=== PATIENT | female | born 1990 | race Caucasian/White ===

== ENCOUNTER 2021-01-28 20:45 | Emergency (ER) | payer MEDICAID, SELFPAY ==
[2021-01-28 21:01] VITALS: BP 116/98; PULSE 113; PULSE 140; RESP 16; TEMP 37; O2SAT 98; BMI 25.8
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
== END 2021-01-28 21:26 | disposition home or self-care (01) ==
PROVIDERS: Emergency Provider Internal Medicine; PCP Internal Medicine
DX: S40.811A Abrasion of right upper arm, initial encounter (principal); Y04.2XXA Assault by strike against or bumped into by another person, initial encounter; M79.89 Other specified soft tissue disorders; Y93.9 Activity, unspecified; Y92.9 Unspecified place or not applicable; Y99.9 Unspecified external cause status
CPT/HCPCS: 99283

== ENCOUNTER 2021-07-05 12:26 | Outpatient (REF) | payer MEDICAID, SELFPAY ==
[2021-07-05 13:33] LABS: COVID-19 Test Negative (Negative)
== END 2021-07-05 12:27 | disposition home or self-care (01) ==
LOC: HO.LAB 12:26
PROVIDERS: Visit Provider Internal Medicine
DX: Z20.822 Contact with and (suspected) exposure to COVID-19 (principal)
CPT/HCPCS: 87635; C9803

== ENCOUNTER 2021-08-25 23:52 | Emergency (ER) | payer MEDICAID, SELFPAY ==
[2021-08-26 00:08] VITALS: BP 138/96; PULSE 70; RESP 18; TEMP 36.6; O2SAT 100; BMI 21.3
[2021-08-26 00:31] LABS: Appearance Urine CLOUDY; Color Urine YELLOW; Glucose Urine UA NEG (NEG); Leukocyte Esterase Urine 1+ (NEG); Nitrite Urine POS (NEG); Specific Gravity - Urine 1.015 (1.005-1.025); Urine Blood NEG (NEG); Urine Ketones NEG (NEG); Urine Protein NEG (NEG-TRACE)
[2021-08-26 00:32] LABS: UPreg QC Valid YES; Urine Pregnancy NEGATIVE (NEGATIVE)
[2021-08-26 00:47] LABS: Amorphous Sediment Urine 2+ /LPF; Bacteria Urine 4+ /LPF; Mucus Urine 2+ /LPF; Squamous Epithelial Cell Urine 1+ /LPF
[2021-08-26 00:53] LABS: MANUAL DIFF FLAG NO
[2021-08-26 00:56] LABS: COVID-19 Test Negative (Negative); IDNOW Serial# 08D9AD1C
[2021-08-26 01:02] LABS: Amphetamine Screen Urine POSITIVE (Not Detect); Barbiturates, Urine Not Detected (Not Detect); Benzodiazepines Screen Urine POSITIVE (Not Detect); Cannabinoid Screen Urine POSITIVE (Not Detect); Cocaine Screen Urine Not Detected (Not Detect); Fentanyl, urine Not Detected (Not Detect); Opiate Screen Urine Not Detected (Not Detect); Phencyclidine Screen Urine Not Detected (Not Detect)
[2021-08-26 01:09] LABS: Basophils Absolute Auto 0.1 X10*3/uL (0.0-0.2); Eosinophils Absolute Auto 0.7 X10*3/uL (0.0-0.4); Eosinophils Percent Auto 6.3 % (0-4); Hematocrit 50.4 % (37.0-47.0); Hemoglobin 17.5 g/dl (12.0-16.0); Imm Gran Abs Auto 0.03 X10*3/uL (0.00-0.03); Imm Gran Pct Auto 0.3 % (0.0-0.4); Lymphocytes Absolute Auto 4.8 X10*3/uL (1.2-4.9); Lymphocytes Percent Auto 46.7 % (20-40); Mean Corpuscular HGB Conc 34.7 g/dl (31.0-35.0); Mean Corpuscular Hemoglobin 31.1 pg (27.0-33.0); Mean Corpuscular Volume 89.7 fL (80.0-98.0); Monocytes Absolute Auto 0.7 X10*3/uL (0.1-1.2); Monocytes Percent Auto 6.3 % (2-11); Neutrophils Absolute Auto 4.1 x10*3/uL (2.0-8.3); Neutrophils Percent Auto 39.4 % (45-73); PLT CLUMP 1; Red Blood Count 5.62 X10*6/uL (4.20-5.50); Red Cell Distribution Width 13.7 % (11.0-16.0); SCAN SMEAR FLAG 1
[2021-08-26 01:10] LABS: Ethanol < 10 mg/dL
[2021-08-26 01:11] LABS: White Blood Count 10.4 X10*3/uL (4.8-10.8)
[2021-08-26 01:13] LABS: Anion Gap 14 (12-20); Blood Urea Nitrogen 7 mg/dL (9-16); Calcium 10.6 mg/dL (8.4-10.2); Carbon Dioxide 28 mmol/L (22-29); Chloride 104 mmol/L (96-108); Creatinine Clr Calc Pharmacy 104.5; Estimated Glomerular Filt Rate > 60; Glucose Random 88 mg/dL (60-115); Lipase 125 U/L (8-78); Potassium 4.6 mmol/L (3.3-5.1); Sodium 141 mmol/L (135-145)
[2021-08-26 01:14] LABS: Platelet Count 383 X10*3/uL (160-400)
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
[2021-08-26 02:22] VITALS: BP 151/82; PULSE 95; RESP 20; TEMP 36.9; O2SAT 99
== END 2021-08-26 02:31 | disposition home or self-care (01) ==
PROVIDERS: Emergency Provider Emergency Medicine Emergency Medical Services
DX: M54.50 Low back pain, unspecified (principal); F19.10 Other psychoactive substance abuse, uncomplicated; R45.1 Restlessness and agitation; Z20.822 Contact with and (suspected) exposure to COVID-19; F32.A Depression, unspecified; F41.9 Anxiety disorder, unspecified
CPT/HCPCS: 36415; 80048; 80307; 81001; 81025; 82077; 83690; 85025; 87635; 99283; 99284

== ENCOUNTER 2021-09-03 21:48 | Emergency (ER) | payer MEDICAID, SELFPAY ==
[2021-09-03 22:01] VITALS: BP 180/100; PULSE 93; RESP 20; TEMP 36.4; O2SAT 100; BMI 21.3
--- NOTE | 2021-09-03 22:26 | ED.PSYCH ---
HPI - Psych General Chief Complaint: Psychiatric Symptoms Stated Complaint: crisis Time Seen by Provider: 09/03/21 22:22 History of Present Illness HPI Narrative: Patient is 30 years old presents today with having [place] someone with suicidal thought was section. Patient claims she was going to jump off a bridge texted that her friend. Scented for further evaluation. He denies drinking any alcohol drugs. Does not feel suicidal at this time. Related Data Allergies Allergy/AdvReac Type Severity Reaction Status Date / Time No Known Allergies Allergy Unverified 03/10/20 16:14 Review of Systems Review of Systems: No chest pain or shortness breath no dizziness no nausea no vomiting Yes all other systems are reviewed and are negative [facility] Past Medical History Attestation statement: The following information was validated with the patient. Social History Social History Advance Directives: No Advance Directives Information Provided: No Patient : No Physical Exam Vital Signs: Vital Signs: Last Vital Signs Temp 97.6 F 09/03/21 22:01 Pulse 94 09/04/21 00:47 Resp 14 09/04/21 00:47 BP 140/92 H 09/04/21 00:47 Pulse Ox 100 09/04/21 00:47 BMI result Body Mass Index 21.3 Appearance: Alert. Oriented X3. No acute distress. Eyes: Pupils equal, round and reactive to light. ENT: Pharynx normal. Neck: Normal inspection. Neck supple. No lymph nodes noted. No crepitus CVS: Normal heart rate and rhythm. Pulses normal. Normal S1 and S2 Respiratory: No respiratory distress. Breath sounds normal. No Wheezing. No rales Abdomen: Soft and nontender. No rigidity. No distention. good BS x4 Skin: Skin warm and dry. Normal skin color. Normal skin turgor. Extremities: No lower extremity edema. Neurovascular intact to all extremities. No Lacerations. No Rash Neuro: Oriented X 3. No motor deficit. No sensory deficit. Moving all extermities. No slurred speech MDM - Psych MDM Narrative Medical decision making narrative: Well-appearing no acute distress. Will get crisis to evaluate patient Patient's lab positive for multitude substances. Patient is currently awaiting crisis evaluation for her suicidal ideations Medical Records Attestation: I reviewed the patient's medical records. Lab Data Attestation: I reviewed the patient's lab results. Labs: Lab Results 09/03/21 09/03/21 09/03/21 Range/Units 22:10 22:24 23:30 Urine Color Urine Appearance Urine pH (5.0-8.0) Ur Specific [place] (1.005-1.025) Urine Protein (NEG-TRACE) MG/DL Urine Glucose (UA) (NEG) MG/DL Urine Ketones (NEG) MG/DL Urine Blood (NEG) Urine Nitrite (NEG) Ur Leukocyte Esterase (NEG) Urine RBC (0) /HPF Urine WBC (0-4) /HPF Ur Squamous Epith Cells /LPF Urine Bacteria /LPF Urine Mucus /LPF Urine Test (NEGATIVE) Urine Opiates Screen Not Detected (Not Detect) Urine Fentanyl Screen Not Detected (Not Detect) Ur Barbiturates Screen Not Detected (Not Detect) Ur Phencyclidine Scrn Not Detected (Not Detect) Ur Amphetamines Screen POSITIVE H (Not Detect) U Benzodiazepines Scrn POSITIVE H (Not Detect) Urine Cocaine Screen POSITIVE H (Not Detect) U Marijuana (THC) Screen POSITIVE H (Not Detect) Ethyl Alcohol < 10 mg/dL COVID-19 (TG) Negative (Negative) COVID-19 Clin Com See Note 09/03/21 09/03/21 Range/Units 23:30 23:30 Urine Color YELLOW Urine Appearance CLOUDY Urine pH 6.0 (5.0-8.0) Ur Specific [place] >= 1.030 H (1.005-1.025) Urine Protein 1+ H (NEG-TRACE) MG/DL Urine Glucose (UA) NEG (NEG) MG/DL Urine Ketones 5 (NEG) MG/DL Urine Blood NEG (NEG) Urine Nitrite POS H (NEG) Ur Leukocyte Esterase TRACE H (NEG) Urine RBC 1-4 (0) /HPF Urine WBC 15-29 H (0-4) /HPF Ur Squamous Epith Cells 1+ /LPF Urine Bacteria 4+ /LPF Urine Mucus 2+ /LPF Urine Test NEGATIVE (NEGATIVE) Urine Opiates Screen (Not Detect) Urine Fentanyl Screen (Not Detect) Ur Barbiturates Screen (Not Detect) Ur Phencyclidine Scrn (Not Detect) Ur Amphetamines Screen (Not Detect) U Benzodiazepines Scrn (Not Detect) Urine Cocaine Screen (Not Detect) U Marijuana (THC) Screen (Not Detect) Ethyl Alcohol mg/dL COVID-19 (TG) (Negative) COVID-19 Clin Com Discharge Plan Discharge Clinical Impression: Polysubstance abuse Patient Disposition: Still a Patient
[2021-09-03 22:38] LABS: COVID-19 Test Negative (Negative)
[2021-09-03 22:45] LABS: Ethanol < 10 mg/dL
[2021-09-03 22:46] VITALS: BP 169/115; PULSE 111; RESP 20
--- NOTE | 2021-09-03 22:46 | MHC.CARE ---
CARE team consult received for 30 year old female who arrived to the ED on a [address] by Agus WILLIS for suicidal ideation. Per [facility] report- pt had been texting a friend and sent a message about suicide and jumping off a bridge. CARE team was contacted by [facility] crisis slot floor supervisor, Keshia. [facility] had contacted crisis to let them know that the pt was en route to the hospital for an evaluation. Keshia reported that the [facility] Lieutenant expressed having major concerns given the proximity which the pt lives to the [address] [facility]. The pt is known to [facility] crisis but has not been seen in the past two years. Recommendation is to refer for crisis eval once pt is medically cleared.
[2021-09-03 23:47] LABS: Appearance Urine CLOUDY; Color Urine YELLOW; Glucose Urine UA NEG (NEG); Leukocyte Esterase Urine TRACE (NEG); Nitrite Urine POS (NEG); Specific Gravity - Urine >= 1.030 (1.005-1.025); Urine Blood NEG (NEG); Urine Ketones 5 MG/DL (NEG); Urine Protein 1+ MG/DL (NEG-TRACE)
[2021-09-03 23:49] LABS: UPreg QC Valid YES; Urine Pregnancy NEGATIVE (NEGATIVE)
[2021-09-03 23:54] LABS: Bacteria Urine 4+ /LPF; Mucus Urine 2+ /LPF; Squamous Epithelial Cell Urine 1+ /LPF
[2021-09-04 00:01] LABS: Amphetamine Screen Urine POSITIVE (Not Detect); Barbiturates, Urine Not Detected (Not Detect); Benzodiazepines Screen Urine POSITIVE (Not Detect); Cannabinoid Screen Urine POSITIVE (Not Detect); Cocaine Screen Urine POSITIVE (Not Detect); Fentanyl, urine Not Detected (Not Detect); Opiate Screen Urine Not Detected (Not Detect); Phencyclidine Screen Urine Not Detected (Not Detect)
--- NOTE | 2021-09-04 00:15 | MHC.CARE ---
Smart sheet completed
[2021-09-04 00:47] VITALS: BP 140/92; PULSE 94; RESP 14; O2SAT 100
[2021-09-04] MEDS: cloNIDine HCL 0.1 MG TABLET PO (01:06)
--- NOTE | 2021-09-04 04:25 | PC.NURSE ---
Patient engaged well during care team assessment, disposition follow up in the morning with possible plan to have partial hospitalization, will continue to monitor.
--- NOTE | 2021-09-04 06:38 | PC.NURSE ---
Patient was up until 0245, appears sleeping since then, no distress observed/reported, will continue to monitor.
[2021-09-04 07:39] VITALS: BP 114/70; PULSE 97; RESP 14; TEMP 36.9; O2SAT 99
--- NOTE | 2021-09-04 09:09 | PC.NURSE ---
pt is a/o x 3 no sob/mary noted skin pink warm dry speaks in full sentences. amb (i) gait steady to common area to call her mother
--- NOTE | 2021-09-04 09:43 | MHC.CARE ---
CARE Team met with patient in [facility] this morning as a follow-up to discuss discharge planning. She stated she would like to be discharged, was still tired and wanted to go home and rest in her own bed. Patient again denied suicidal ideation, plan or intention, reported that she has a plan to start PHP/IOP on 09/10/21 through [facility] and also has an intake for therapy scheduled, is looking forward to those appointments. Has CARE Team and [facility] contact information. Patient made aware that she will receive a check-in call within 24-48 hours. Parents en route to picker tender helper patient. Providers updated.
--- NOTE | 2021-09-05 15:25 | MHC.CARE ---
Pt returned follow up call to CARE Team. Pt reports that she is feeling better and feels well-equipped to start making phone calls to connect with outpatient providers. Pt reports feeling optimistic about her future and grateful for the help she received in the ED.
== END 2021-09-04 10:40 | disposition home or self-care (01) ==
PROVIDERS: Emergency Provider Emergency Medicine Emergency Medical Services; PCP Internal Medicine
DX: F14.10 Cocaine abuse, uncomplicated (principal); F41.1 Generalized anxiety disorder; R45.851 Suicidal ideations; F43.0 Acute stress reaction; N39.0 Urinary tract infection, site not specified; F12.10 Cannabis abuse, uncomplicated; F15.10 Other stimulant abuse, uncomplicated; Z20.822 Contact with and (suspected) exposure to COVID-19; Z79.899 Other long term (current) drug therapy
CPT/HCPCS: 36415; 80307; 81001; 81025; 82077; 87635; 99284

== ENCOUNTER 2021-09-29 11:11 | Outpatient (REF) | payer MEDICAID, SELFPAY ==
[2021-09-29 14:01] LABS: C Reactive Protein 0.09 mg/dL (< or = 0.50); Lipase 28 U/L (8-78); Potassium 4.3 mmol/L (3.3-5.1)
[2021-09-29 14:24] LABS: Thyroid Stimulating Hormone 2.46 uIU/mL (0.32-4.0)
[2021-09-29 14:51] LABS: Vitamin B12 226 pg/mL (200-900)
[2021-10-02 04:14] LABS: HBS Num1 0.11 mIU/mL (0-7.99); ~HepC Num1 12.45 S/CO (0.00-0.79); ~Hepatitis B Surface Antibody NONREACTIVE (Nonreactive); ~Hepatitis C Antibody Reactive (Nonreactive)
[2021-10-02 04:24] LABS: HIV AB/AG Nonreactive (Nonreactive); HIV Num 1 0.07 S/CO (0.00-0.99)
== END 2021-09-29 11:12 | disposition home or self-care (01) ==
LOC: HO.HMGCLDS 11:11
PROVIDERS: PCP Internal Medicine; Visit Provider Internal Medicine
DX: Z11.4 Encounter for screening for human immunodeficiency virus [HIV] (principal); R63.0 Anorexia; R63.4 Abnormal weight loss
CPT/HCPCS: 36415; 82607; 83690; 84132; 84439; 84443; 86140; 86706; 86803; 87389

== ENCOUNTER 2022-01-11 14:21 | Outpatient (REF) | payer MEDICAID, SELFPAY ==
[2022-01-11 14:33] LABS: MANUAL DIFF FLAG NO
[2022-01-11 14:48] LABS: Basophils Absolute Auto 0.1 X10*3/uL (0.0-0.2); Eosinophils Absolute Auto 0.4 X10*3/uL (0.0-0.4); Eosinophils Percent Auto 5.2 % (0-4); Hematocrit 41.1 % (37.0-47.0); Hemoglobin 13.6 g/dl (12.0-16.0); Imm Gran Abs Auto 0.03 X10*3/uL (0.00-0.03); Imm Gran Pct Auto 0.4 % (0.0-0.4); Lymphocytes Absolute Auto 2.4 X10*3/uL (1.2-4.9); Lymphocytes Percent Auto 33.1 % (20-40); Mean Corpuscular HGB Conc 33.1 g/dl (31.0-35.0); Mean Corpuscular Hemoglobin 31.1 pg (27.0-33.0); Mean Corpuscular Volume 94.1 fL (80.0-98.0); Mean Platelet Volume 8.4 fL (9.4-12.3); Monocytes Absolute Auto 0.8 X10*3/uL (0.1-1.2); Monocytes Percent Auto 10.3 % (2-11); Neutrophils Absolute Auto 3.6 x10*3/uL (2.0-8.3); Platelet Count 329 X10*3/uL (160-400); Red Blood Count 4.37 X10*6/uL (4.20-5.50); Red Cell Distribution Width 13.2 % (11.0-16.0); White Blood Count 7.3 X10*3/uL (4.8-10.8)
[2022-01-11 15:17] LABS: Alanine Aminotransferase 11 U/L (0-31); Albumin Level 4.1 g/dL (3.5-5.0); Alkaline Phosphatase 71 U/L (39-117); Anion Gap 11 (12-20); Aspartate Amino Transferase 17 U/L (5-31); Bilirubin Total 0.3 mg/dL (0.0-1.0); Blood Urea Nitrogen 6 mg/dL (9-16); Calcium 8.9 mg/dL (8.4-10.2); Carbon Dioxide 22 mmol/L (22-29); Chloride 110 mmol/L (96-108); Estimated Glomerular Filt Rate > 60; Glucose Random 114 mg/dL (60-115); Potassium 4.3 mmol/L (3.3-5.1); Sodium 139 mmol/L (135-145); Total Protein 6.6 g/dL (6.5-8.0)
[2022-01-14 09:32] LABS: HCV Log PCR <1.18 NOT DETECTED Log IU/mL (NOT DETECTED); HepC Viral Load <15 NOT DETECTED IU/mL (NOT DETECTED)
== END 2022-01-11 14:22 | disposition home or self-care (01) ==
LOC: HO.LAB 14:21
PROVIDERS: PCP Internal Medicine; Visit Provider Internal Medicine
DX: Z86.19 Personal history of other infectious and parasitic diseases (principal)
CPT/HCPCS: 36415; 80053; 85025; 87522

== ENCOUNTER 2022-01-31 21:22 | Emergency (ER) | payer MEDICAID, SELFPAY ==
--- NOTE | 2022-01-31 21:27 | ED.OVERDOSE ---
HPI - Overdose General Chief Complaint: Overdose Stated Complaint: od Time Seen by Provider: 01/31/22 21:26 Source: patient and EMS Mode of arrival: EMS Limitations: no limitations History of Present Illness HPI Narrative: Patient comes to the emergency room after an overdose. Patient admits that she used 2 bags of heroin, denies suicidal ideation or homicidal ideation. EMS reports that after patient used 2 bags of heroin at her friend's house, patient became unresponsive, cyanotic, the patient's friend administer 4 mg intranasal of Narcan with no response. PD administered 3 mg of intranasal Narcan. Patient was still cyanotic and apneic breathing. EMS gave the patient 1.5 mg of IV Narcan. On arrival to the emergency room, patient is awake, alert and oriented x3, oxygen saturation 98% on room air Related Data Previous Rx's Medication Instructions Recorded cefuroxime axetil 250 mg tablet 250 mg PO BID 7 days #14 tabs 09/04/21 Allergies Allergy/AdvReac Type Severity Reaction Status Date / Time No Known Allergies Allergy Unverified 03/10/20 16:14 Review of Systems Review of Systems: Constitutional : No Weight loss, No Fever, No Chills, No Night Sweats, No Fatigue, No Malaise ENT/Mouth : No Hearing loss, No Ear Pain, No Nasal Congestion, No Sinus Pain, No Hoarseness, No sore throat, No Rhinorrhea, No Swallowing Difficulty Eyes: No Eye Pain, No Swelling, No Redness, No Foreign Body, No Discharge, No Vision Changes Cardiovascular : No Chest Pain, No SOB, No Dyspnea on Exertion, No Orthopnea, No Edema, No Palpitations Respiratory : No Cough, No Sputum, No Wheezing, No Smoke Exposure, No Dyspnea Gastrointestinal : No Nausea, No Vomiting, No Diarrhea, No Constipation, No abdominal Pain, No Hematochezia, No Melena Genitourinary : no irregular bleeding, No Dysuria, No Urinary Frequency, No Hematuria, No Urinary Incontinence, No Urgency, No Flank Pain, No Urinary Flow Changes, No Hesitancy Musculoskeletal : No joint pain, No Myalgias, No Joint Swelling Skin : No Skin Lesions, No rash Neuro : No Weakness, No Numbness, No Paresthesias, No Loss of Consciousness, No Dizziness, No Headache Psych : No Anxiety/Panic, No Depression, No SI/HI/AH/VH, admits to drug abuse Heme/Lymph: No Bruising, No Bleeding,No Lymphadenopathy Endocrine : No Polyuria, No Polydipsia, No Temperature Intolerance PMF Past Medical History Medical History (Updated 01/31/22 @ 21:31 by Chiquita Carrington MD) Overdose Substance abuse Social History Social History Advance Directives: No Advance Directives Information Provided: No Physical Exam Vital Signs: Vital Signs: Last Vital Signs Temp 98.1 F 01/31/22 21:37 Pulse 86 01/31/22 21:37 Resp 16 01/31/22 21:37 BP 151/99 H 01/31/22 21:37 Pulse Ox 100 01/31/22 21:37 O2 Del Method 01/31/22 21:37 BMI result Body Mass Index 21.6 Const: Other: Appearance: Alert. Oriented X3. No acute distress. Eyes: Pupils equal, round and reactive to light. ENT: Pharynx normal. Neck: Normal inspection. Neck supple. No lymph nodes noted. No crepitus CVS: Normal heart rate and rhythm. Pulses normal. Normal S1 and S2 Respiratory: No respiratory distress. Breath sounds normal. No Wheezing. No rales Abdomen: Soft and nontender. No rigidity. No distention. Skin: Skin warm and dry. Normal skin color. Normal skin turgor. Extremities: No lower extremity edema. No Lacerations. No Rash Neuro: Oriented X 3. No motor deficit. No sensory deficit. Moving all extremities. No slurred speech. CN 2 through 12 grossly intact Psych: calm, cooperative, normal affect Course Course Course Narrative: Patient will be observed, just received 7.5 mg of Narcan Patient states that she is due in court tomorrow. Requesting detox. The care team is not available tonight. Patient will have to wait until the morning to be seen. Physician observation started at 21:30 23:45, patient is awake, alert and oriented x3. Patient's oxygen saturation has remained 100% on room air, awake. Patient feels well. Patient changed her mind, patient does not want to wait to be seen by the care team for a SUDE eval. Patient given home Narcan. Patient states that she will call [facility] tomorrow herself Discharge Plan Discharge Clinical Impression: Overdose Patient Disposition: Home, Self-Care Instructions: Adult Overdose (ED) Additional Instructions: Please follow-up with your primary care physician tomorrow. If you have any worsening or new symptoms, please return to the emergency room or call 911 Prescriptions: No Action cefuroxime axetil 250 mg tablet 250 mg PO BID 7 Days Qty: 14 0RF
[2022-01-31 21:37] VITALS: BP 151/99; BP 160/102; PULSE 86; PULSE 90; RESP 16; TEMP 36.7; O2SAT 100; BMI 21.6
--- NOTE | 2022-01-31 23:43 | PC.NURSE ---
pt A&O, denies any sob or chest pain. pt wants to go home and follow up with [facility] . Pt has court in the am. Resource of outpatient rehab provided. Provider is aware.
[2022-01-31] MEDS: Naloxone HCl Nasal TAKE HOME 4 MG SPRAY NOSTRILALT (23:57)
[2022-02-01 00:04] VITALS: BP 162/85; PULSE 71; RESP 16; TEMP 36.6; O2SAT 95
--- NOTE | 2022-02-01 00:08 | PC.NURSE ---
Narcan given at discharge with discharge instructions.
== END 2022-02-01 00:11 | disposition home or self-care (01) ==
PROVIDERS: Emergency Provider Emergency Medicine; PCP Internal Medicine
DX: T40.1X1A Poisoning by heroin, accidental (unintentional), initial encounter (principal); R40.4 Transient alteration of awareness; F19.10 Other psychoactive substance abuse, uncomplicated; Y92.9 Unspecified place or not applicable
CPT/HCPCS: 99284; 99285

== ENCOUNTER 2022-04-22 13:50 | Emergency (ER) | payer MEDICAID, SELFPAY ==
--- NOTE | ~2022-04-22 | CT_ITS ---
EXAMINATION: CT HEAD WITHOUT CONTRAST, CT CERVICAL SPINE WITHOUT CONTRAST CLINICAL INFORMATION: Trauma COMPARISON: Portions of a previous study 08/16/18 TECHNIQUE: Multidetector CT examination of the head is performed without contrast. Multidetector CT of the cervical spine without contrast. Multiplanar postprocessing This CT examination was performed using dose optimization techniques as appropriate, variously including the following: *Automated exposure control *Adjustment of mA and/or kV according to patient size (this includes techniques or standardized protocols for targeted exams where dose is matched to indication/reason for exam; i.e. extremities or head) *Use of iterative reconstruction technique DLP: 946 mGy-cm FINDINGS: Head CT: There is no evidence of a recent intracranial hemorrhage or extra-axial collection. The midline structures are nondisplaced. The ventricles, cisterns, and sulci are within normal limits. There is no evidence of an intra-axial mass. There are no suspicious focal areas of abnormal brain attenuation. The wilson-white interface is within normal limits. There is no evidence of acute territorial infarct. There is some mild thickening in the ethmoid air cells. Jewelry in the right malar soft tissues and region of right ear Cervical CT: No fracture or subluxation. No focal lesion or loss of volume. Disc height is maintained No suspicious abnormality in the visualized apex of the chest CT/CT head/brain wo IV con IMPRESSION: 1. There is no evidence of a recent intracranial hemorrhage. 2. No acute infarct. 3. No acute fracture or subluxation of the cervical spine.
--- NOTE | ~2022-04-22 | CT_ITS ---
EXAMINATION: CT HEAD WITHOUT CONTRAST, CT CERVICAL SPINE WITHOUT CONTRAST CLINICAL INFORMATION: Trauma COMPARISON: Portions of a previous study 08/16/18 TECHNIQUE: Multidetector CT examination of the head is performed without contrast. Multidetector CT of the cervical spine without contrast. Multiplanar postprocessing This CT examination was performed using dose optimization techniques as appropriate, variously including the following: *Automated exposure control *Adjustment of mA and/or kV according to patient size (this includes techniques or standardized protocols for targeted exams where dose is matched to indication/reason for exam; i.e. extremities or head) *Use of iterative reconstruction technique DLP: 946 mGy-cm FINDINGS: Head CT: There is no evidence of a recent intracranial hemorrhage or extra-axial collection. The midline structures are nondisplaced. The ventricles, cisterns, and sulci are within normal limits. There is no evidence of an intra-axial mass. There are no suspicious focal areas of abnormal brain attenuation. The wilson-white interface is within normal limits. There is no evidence of acute territorial infarct. There is some mild thickening in the ethmoid air cells. Jewelry in the right malar soft tissues and region of right ear Cervical CT: No fracture or subluxation. No focal lesion or loss of volume. Disc height is maintained No suspicious abnormality in the visualized apex of the chest CT/CT cervical spine wo IV con IMPRESSION: 1. There is no evidence of a recent intracranial hemorrhage. 2. No acute infarct. 3. No acute fracture or subluxation of the cervical spine.
[2022-04-22 14:06] VITALS: PULSE 99; O2SAT 96
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
[2022-04-22 14:29] VITALS: BP 128/89; PULSE 77; RESP 14; TEMP 36.6; O2SAT 96
[2022-04-22 14:37] VITALS: BP 128/89; PULSE 77; RESP 16; TEMP 36.6; O2SAT 98; BMI 21.9
--- NOTE | 2022-04-22 15:26 | PC.NURSE ---
smell of cigarette smoke coming out of pt room. pt denies smoking but pack of cigarettes and project manager process development found in pt possession. pts purse with project manager process development and cigarettes taken and held at nurses station until pt d/c
--- NOTE | 2022-04-22 15:32 | PC.NURSE ---
pts mother called ER informed t/w that pt was in [facility] several weeks ago and was inpatient. pts mom was tearful, difficult with understanding pt. pts mom reported that her daughter is unsafe and needs help and that she was making statements to her. pts mother was unable to tell this loan underwriter specifics about statements that were being said to her, just kept saying to t/w that she needs help please get her help .. MD Titus made aware of mothers comments. T/w and MD Titus spoke with pt, she reports that she was in a bad place about two mothers ago and made some suicidal statements while drunk and was seen in [facility], pt reported that she has been sober since then and has no thoughts of SI/SHB.
--- NOTE | 2022-04-22 15:54 | PC.NURSE ---
pt rpeorts wanting to leave, has a ride home. MD aware. pt did not want to talk with the recovery team.
== END 2022-04-22 16:09 | disposition home or self-care (01) ==
PROVIDERS: Emergency Provider Emergency Medicine; PCP Internal Medicine
DX: S16.1XXA Strain of muscle, fascia and tendon at neck level, initial encounter (principal); Y04.2XXA Assault by strike against or bumped into by another person, initial encounter; R51.9 Headache, unspecified; F19.10 Other psychoactive substance abuse, uncomplicated; Y93.9 Activity, unspecified; Y92.009 Unspecified place in unspecified non-institutional (private) residence as the place of occurrence of the external cause; Y99.9 Unspecified external cause status; Z79.899 Other long term (current) drug therapy; F17.200 Nicotine dependence, unspecified, uncomplicated
CPT/HCPCS: 70450; 72125; 99284

== ENCOUNTER 2022-04-28 12:10 | Emergency (ER) | payer MEDICAID, SELFPAY ==
[2022-04-28 12:56] VITALS: BP 127/83; PULSE 91; RESP 18; TEMP 36.2; O2SAT 100; BMI 22.6
--- OUTSIDE RECORDS SUMMARY | 2022-04-28 13:48 | XMS_ITS | Continuity of Care Document ---
:1990 Author Organization [facility] Address [address] [place] [id number]- Care Team Providers Name Role Phone Danilo George MD Primary Care Physician [place] [facility] [place](s): 02/29/20 - 02/29/[address] [address]- [facility] Discharge Disposition: A-D/C Walkout Attending Physician: Not on Staff, Attending MD Admitting Physician: Not on Staff, Admitting MD Referring Physician: Not on Staff, Referring MD Allergies, Adverse Reactions, Alerts Substance Reaction Severity Status NKA Active Vital Signs Most recent to oldest [Reference Range]: 1 2 Oxygen Saturation [94-100 %] 98 % 100 % (02/29/20 6:57 PM) (02/29/20 6:30 PM) Pulse Rate [55-90 bpm] 98 bpm 120 bpm *H* *H* (02/29/20 6:57 PM) (02/29/20 6:30 PM) Blood Pressure [90-138/55-84 mm Hg] 162/107 mm Hg *H* (02/29/20 6:57 PM) Respiratory Rate [16-30 br/min] 16 br/min (02/29/20 6:57 PM) Temperature [96.8-100.4 DegF] 98.8 DegF (02/29/20 6:57 PM) Mode of Delivery (Oxygen) Room air Room air (02/29/20 6:57 PM) (02/29/20 6:30 PM) Blood pressure sites Arm, right (02/29/20 6:57 PM) Temperature Route Oral (02/29/20 6:57 PM)
--- OUTSIDE RECORDS SUMMARY | 2022-04-28 13:48 | XMS_ITS | Continuity of Care Document ---
:1990 Author Organization [facility] Address [address] [place] [address]- Care Team Providers Name Role Phone Danilo George MD Primary Care Physician Encounter [facility] [place] [facility] R [id number] Date(s): 03/04/20 - 03/05/[address] [address]- [facility] Discharge Disposition: A-D/C Home Attending Physician: Todd Birmingham MD Admitting Physician: Todd Birmingham MD Referring Physician: Not on Staff, Referring MD Allergies, Adverse Reactions, Alerts Substance Reaction Severity Status NKA Active Medications metronidazole topical 0.75% gel with applicator 1 applicator, Vaginally, Daily at bedtime, for 5 days, # 70 Gm, 0 Refills, Acute 03/10/20 5:50:00 EDT, 03/05/20 5:50:00 EDT, Gel, [id number], 1 applicator Vaginally Daily at bedtime,x5 days Start Date: 03/05/20 Stop Date: 03/10/20 Status: OrderedMiraLax oral powder for reconstitution = 17 Gm, By Mouth, Daily, for 7 days, dissolve in water before taking, # 119 Gm, 0 Refills, Acute 03/12/20 5:50:00 EDT, 03/05/20 5:50:00 EDT, REC Powder, [id number], 17 Gm By Mouth Daily,x7 days,Instr:dissolve in water before taking Start Date: 03/05/20 Stop Date: 03/12/20 Status: Ordered Results Orders for Microbiology Reports Name Date Wet Prep 03/05/20 Microbiology Reports TEST:Wet Prep STATUS:Auth (Verified) BODY SITE: SOURCE:VAGINA COLLECTED DATE/TIME:03/05/20 3:10 AMWet Prep SPECIMEN DESCRIPTION : VAGINAL SPECIMEN SPECIAL REQUESTS : NONE DIRECT EXAM : 1+ WHITE BLOOD CELLS 2+ CLUE CELLS NO YEAST OBSERVED NO TRICHOMONAS OBSERVED REPORT STATUS : FINAL 03/05/2020 Vital Signs Most recent to oldest 1 2 3 [Reference Range]: Oxygen Saturation [94-100 %] 98 % 100 % 100 % (03/05/20 6:05 AM) (03/05/20 3:05 AM) (03/05/20 12: 39 AM) Pulse Rate [55-90 bpm] 62 bpm 58 bpm 62 bpm (03/05/20 6:05 AM) (03/05/20 3:05 AM) (03/05/20 12: 39 AM) Blood Pressure [90-138/55-84 120/82 mm Hg 166/95 mm Hg 157 /90 mm Hg mm Hg] (03/05/20 6:05 AM) *H* *H* (03/05/20 3:05 AM) (03/05/20 12:39 AM) Respiratory Rate [16-30 18 br/min 18 br/min 18 br/mi n br/min] (03/05/20 6:05 AM) (03/05/20 3:05 AM) (03/05/20 12: 39 AM) Temperature [96.8-100.4 DegF] 98.3 DegF 98.5 DegF 98 .2 DegF (03/05/20 12:39 AM) (03/04/20 8:55 PM) (03/04/20 6: 50 PM) Mode of Delivery (Oxygen) Room air Room air Room a ir (03/05/20 6:05 AM) (03/05/20 3:05 AM) (03/05/20 12: 39 AM) Blood pressure sites Arm, right Arm, right Arm, right (03/05/20 6:05 AM) (03/05/20 3:05 AM) (03/05/20 12: 39 AM) Temperature Route Oral Oral Oral (03/05/20 12:39 AM) (03/04/20 8:55 PM) (03/04/20 6: 50 PM)
--- OUTSIDE RECORDS SUMMARY | 2022-04-28 13:48 | XMS_ITS | Continuity of Care Document ---
:1990 Author Organization [facility] Address [address] [place] [address]- Care Team Providers Name Role Phone Not on Staff, PCP Primary Care Physician Unavailable En[place] [facility] [place] Date(s): 02/05/21 - 02/05/[address] [address]- Discharge Disposition: A-D/C Home Attending Physician: Celeste Fontenot MD Admitting Physician: Celeste Fontenot MD Referring Physician: Not on Staff, Referring MD Allergies, Adverse Reactions, Alerts Substance Reaction Severity Status NKA Active Medications No Known Medications Results Radiology Reports Exam Date Time Procedure Performing Provider Status 02/05/21 2:46 AM Ankle Min 3 Views Right Miguel Dumont; Lelo (Verified) Notes:(Ankle Min 3 Views Right) Reason For Exam: with Pain;TraumaRESULT: Ankle Min 3 Views Right Ankle Min 3 Views Right INDICATION: Hx of Present Illness: Pt states she tripped injuring her right ankle. Pt told EMS she thought she was at [facility], but was actually found on the top floor of a parking garage. Pt admits toMarijuana and ETOH use tonight. States she is frequently confused due to a concussion.; Reason: Trauma; with Pain; Clinical Question(s): Fracture COMPARISON: None. FINDINGS: Unremarkable soft tissue. There is no fracture or dislocation. Joint space is maintained. IMPRESSION: Normal. WSN: [id number] Ordering Physician: Praveen Quach Dictated By: Juliette Mckee MD Dictated Date/Time: 02/05/21 8:35 am Reviewed By: Juliette Mckee MD Signed By: Juliette Mckee MD Signed Date/Time: 02/05/21 8:35 am Transcribed By: EMILY Transcribed Date/Time: 02/05/21 8:35 am Exam Date Time Procedure Performing Provider Status 02/05/21 2:46 AM Tibia/Fibula 2 Views Right Miguel Dumont; Au th (Verified) Notes:(Tibia/Fibula 2 Views Right) Reason For Exam: with Pain;TraumaRESULT: Tibia/Fibula 2 Views Right Tibia/Fibula 2 Views Right INDICATION: Hx of Present Illness: Pt states she tripped injuring her right ankle. Pt told EMS she thought she was at [facility], but was actually found on the top floor of a parking garage. Pt admits toMarijuana and ETOH use tonight. States she is frequently confused due to a concussion.; Reason: Trauma; with Pain; Clinical Question(s): Fracture COMPARISON: None. FINDINGS: Unremarkable soft tissue. There is no fracture or dislocation. Joint space is maintained. IMPRESSION: Normal. WSN: [id number] Ordering Physician: Praveen Quach Dictated By: Juliette Mckee MD Dictated Date/Time: 02/05/21 8:35 am Reviewed By: Juliette Mckee MD Signed By: Juliette Mckee MD Signed Date/Time: 02/05/21 8:35 am Transcribed By: EMILY Transcribed Date/Time: 02/05/21 8:35 am Vital Signs Most recent to oldest 1 2 3 [Reference Range]: Oxygen Saturation [94-100 %] 99 % 100 % 100 % (02/05/21 6:51 AM) (02/05/21 5:24 AM) (02/05/21 1:3 5 AM) Pulse Rate [55-90 bpm] 85 bpm 92 bpm 92 bpm (02/05/21 6:51 AM) *H* *H* (02/05/21 5:24 AM) (02/05/21 1:35 AM) Blood Pressure [90-138/55-84 mm 152/91 mm Hg 147/88 mm Hg 146/85 mm Hg Hg] *H* *H* *H* (02/05/21 6:51 AM) (02/05/21 5:24 AM) (02/05/21 1:3 5 AM) Respiratory Rate [16-30 br/min] 18 br/min 18 br/min 18 br/min (02/05/21 6:51 AM) (02/05/21 5:24 AM) (02/05/21 1:3 5 AM) Temperature [96.8-100.4 DegF] 98.3 DegF 97.5 DegF (02/05/21 5:24 AM) (02/05/21 1:35 AM) Mode of Delivery (Oxygen) Room air Room air Room a ir (02/05/21 6:51 AM) (02/05/21 5:24 AM) (02/05/21 1:3 5 AM) Blood pressure sites Arm, left Arm, left Arm, left (02/05/21 6:51 AM) (02/05/21 5:24 AM) (02/05/21 1:3 5 AM) Temperature Route Oral Oral (02/05/21 5:24 AM) (02/05/21 1:35 AM)
--- OUTSIDE RECORDS SUMMARY | 2022-04-28 13:48 | XMS_ITS | Continuity of Care Document ---
:1990 Author Organization [facility] Address [address] [place] [address]- Care Team Providers Name Role Phone Not on Staff, PCP Primary Care Physician Unavailable Encounter [facility] Date(s): 01/29/21 - 01/29/[address] [address]- Encounter Diagnosis Concussion (Final) - 01/29/21 Discharge Disposition: A-D/C Home Attending Physician: Francisco Javier Montgomery DO Admitting Physician: Francisco Javier Montgomery DO Referring Physician: Not on Staff, Referring MD Allergies, Adverse Reactions, Alerts Substance Reaction Severity Status NKA Active Vital Signs Most recent to oldest [Reference 1 2 3 Range]: Weight 73.6 kg 73.6 kg 73.6 kg (01/29/21 7:50 AM) (01/29/21 7:42 AM) (01/29/21 7:22 A M) Oxygen Saturation [94-100 %] 100 % 100 % 99 % (01/29/21 7:50 AM) (01/29/21 7:42 AM) (01/29/21 7:22 A M) Pulse Rate [55-90 bpm] 78 bpm 72 bpm 94 bpm (01/29/21 7:50 AM) (01/29/21 7:42 AM) *H* (01/29/21 7:22 AM) Blood Pressure [90-138/55-84 mm 157/84 mm Hg 140/100 mm Hg 149/95 mm Hg Hg] *H* *H* *H* (01/29/21 7:50 AM) (01/29/21 7:42 AM) (01/29/21 5:48 A M) Respiratory Rate [16-30 br/min] 15 br/min 16 br/min 14 br/min *L* (01/29/21 7:42 AM) *L* (01/29/21 7:50 AM) (01/29/21 7:22 AM ) Temperature [96.8-100.4 DegF] 98.5 DegF 98.7 DegF (01/29/21 7:50 AM) (01/29/21 5:48 AM) Mode of Delivery (Oxygen) Room air Room air Room a ir (01/29/21 7:50 AM) (01/29/21 7:42 AM) (01/29/21 7:22 A M) Blood pressure sites Arm, left Arm, left Arm, right (01/29/21 7:50 AM) (01/29/21 7:42 AM) (01/29/21 5:48 A M) Temperature Route Oral Oral (01/29/21 7:50 AM) (01/29/21 5:48 AM) Dry Weight 73.6 kg 73.6 kg 73.6 kg (01/29/21 7:50 AM) (01/29/21 7:42 AM) (01/29/21 7:22 A M)
--- OUTSIDE RECORDS SUMMARY | 2022-04-28 13:48 | XMS_ITS | Continuity of Care Document ---
:1990 Author Organization [facility] Address [address] [place] [address]- Care Team Providers Name Role Phone Not on Staff, PCP Primary Care Physician Unavailable Encounter [facility] Date(s): 12/08/21 - 12/09/[address] [address]- Encounter Diagnosis Cocaine use (Final) - 12/08/21 Alcohol intoxication (Final) - 12/08/21 Discharge Disposition: A-D/C Home Attending Physician: Grant Felder MD Admitting Physician: Grant Felder MD Referring Physician: Not on Staff, Referring MD Allergies, Adverse Reactions, Alerts No Known Allergies Vital Signs Most recent to oldest 1 2 3 [Reference Range]: Oxygen Saturation [94-100 %] 100 % 100 % 96 % (12/08/21 10:23 PM) (12/08/21 8:18 PM) (12/08/21 7: 08 PM) Pulse Rate [55-90 bpm] 81 bpm 98 bpm 87 bpm (12/08/21 10:23 PM) *H* (12/08/21 7:08 PM) (12/08/21 8:18 PM) Blood Pressure [90-138/55-84 129/91 mm Hg 124/84 mm Hg 118 /78 mm Hg mm Hg] (12/08/21 10:23 PM) (12/08/21 8:18 PM) (12/08/21 7: 08 PM) Respiratory Rate [16-30 20 br/min 25 br/min 18 br/mi n br/min] (12/08/21 10:23 PM) (12/08/21 8:18 PM) (12/08/21 4: 59 PM) Temperature [96.8-100.4 DegF] 98.1 DegF 98.5 DegF 97 .6 DegF (12/08/21 10:23 PM) (12/08/21 8:18 PM) (12/08/21 4: 59 PM) Mode of Delivery (Oxygen) Room air Room air Room a ir (12/08/21 10:23 PM) (12/08/21 8:18 PM) (12/08/21 7: 08 PM) Temperature Route Oral Oral Oral (12/08/21 10:23 PM) (12/08/21 8:18 PM) (12/08/21 4: 59 PM)
[2022-04-28 14:07] LABS: Amphetamine Screen Urine Not Detected (Not Detect); Barbiturates, Urine Not Detected (Not Detect); Benzodiazepines Screen Urine POSITIVE (Not Detect); Cannabinoid Screen Urine POSITIVE (Not Detect); Cocaine Screen Urine POSITIVE (Not Detect); Fentanyl, urine Not Detected (Not Detect); Opiate Screen Urine Not Detected (Not Detect); Phencyclidine Screen Urine Not Detected (Not Detect)
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
== END 2022-04-28 14:41 | disposition home or self-care (01) ==
PROVIDERS: Emergency Provider Emergency Medicine; PCP Internal Medicine
DX: Z02.2 Encounter for examination for admission to residential institution (principal); F19.10 Other psychoactive substance abuse, uncomplicated
CPT/HCPCS: 80307; 99282